=== PATIENT | female | born 1940 | race Caucasian/White ===

== ENCOUNTER 2023-01-31 18:40 | Emergency (ER) | payer MEDICARE, SELFPAY ==
[2023-01-31] VITALS (13 sets, daily range): BP systolic 136–148; BP diastolic 62–67; PULSE 45–66; RESP 10–20; TEMP 37.2; O2SAT 96–98; BMI 19.8
--- NOTE | 2023-01-31 18:57 | DI.RAD.S_ITS ---
PROCEDURE: XR CHEST 1V INDICATIONS: chest pain TECHNIQUE: One view of the chest was acquired. COMPARISON: None. FINDINGS: Surgical changes and devices: None. Lungs and pleura: Lungs are clear. No pleural effusions or pneumothorax. Mediastinum: Mediastinal contours appear normal. Heart size is normal. Bones and chest wall: No suspicious bony lesions. Overlying soft tissues appear unremarkable. IMPRESSION: No acute cardiopulmonary abnormality. Dictated by: Fercho Molina M.D. on 01/31/2023 at 19:45 Approved by: Fercho Molina M.D. on 01/31/2023 at 19:46
[2023-01-31 19:41] LABS: Add Manual Diff / Slide Review NO; Basophils Absolute Auto 100 /uL (0-100); Basophils Percent Auto 1.5 % (0-2); Eosinophils Absolute Auto 100 /uL (0-450); Eosinophils Percent Auto 2.5 % (2-4); Hematocrit 38.5 % (36-46); Lymphocytes Absolute Auto 1500 /uL (1100-4500); Lymphocytes Percent Auto 25.8 % (25-40); Mean Corpuscular HGB Conc 33.8 % (30-36); Mean Corpuscular Hemoglobin 32.2 PG (26-34); Mean Corpuscular Volume 95.2 fL (80-100); Monocytes Absolute Auto 600 /uL (0-900); Monocytes Percent Auto 10.4 % (3-14); Neutrophils Absolute Auto 3500 /uL (1500-7000); Neutrophils Percent Auto 59.8 % (50-75); Platelet Count 232 X10^3/uL (150-400); Red Blood Cell Count 4.04 X10^6/uL (4.0-5.2); Red Cell Distribution Width 13.8 % (11.6-14.8); White Blood Cell Count 5.8 X10^3/uL (4.5-11.0)
[2023-01-31 19:51] LABS: PTT Partial Thromboplastin Tim 32 SECONDS (26-36)
[2023-01-31 19:53] LABS: Alanine Aminotransferase 42 IU/L (<35); Albumin 3.8 g/dL (3.5-5.0); Albumin Globulin Ratio 1.4 (1.0-2.8); Alkaline Phosphatase 102 U/L (38-126); Aspartate Aminotransferase 41 IU/L (14-36); BUN Creatinine Ratio 32.1 (6-22); Bilirubin Total 0.4 mg/dL (0.2-1.3); Blood Urea Nitrogen 26 mg/dL (7-17); Carbon Dioxide 22 mmol/L (22-32); Chloride 103 mmol/L (98-107); Creatine Kinase 69 U/L (30-135); Estimated Glomerular Filt Rate > 60 mL/min (>60); Globulin 2.8 g/dL (1.7-4.1); Glucose 89 mg/dL (80-110); HEMOLYSIS < 15 (0-50); Lipase 76 U/L (23-300); Magnesium 2.2 mg/dL (1.6-2.3); Potassium 3.7 mmol/L (3.4-5.1); Sodium 133 mmol/L (137-145); Total Protein 6.6 g/dL (6.3-8.2)
[2023-01-31 20:05] LABS: Troponin I < 0.012 ng/mL (0.01-0.034)
[2023-01-31 20:07] LABS: COVID19 -Nasal RAPID Negative (Negative)
[2023-01-31 20:24] LABS: TSH w/ Reflex to FT4 1.59 uIU/mL (0.47-4.68)
--- NOTE | 2023-01-31 22:10 | ED_ITS ---
HPI - General Adult <Andrew George DO - Last Filed: 02/04/23 08:07> General Chief complaint: Chest Pain Stated complaint: Heart palpitations, pain in left side Time Seen by Provider: 01/31/23 19:30 Source: patient Mode of arrival: Ambulatory History of Present Illness HPI narrative: 82-year-old female nonsmoker with history of hyperlipidemia presents with her in the chief complaint some left-sided chest pain back pain that started while at rest prior to her arrival. She states that it feels somewhat similar to the chest pressure that she experiences with exertion accepted did not radiate into her neck. She states it over at least the past few weeks she is had an increasing prevalence of this type of chest pressure with exertion and denies prior episodes while at rest. She had been referred to [facility] for an outpatient stress echo which was performed earlier today and she had been driving home and was actually in the [place] when she developed moderate intensity chest pressure and felt like she may have had a few palpitations. She is been pain-free for the duration of her visit here. She did find out that the stress echo demonstrated signs of ischemia with EKG change s. She has never had heart attack, she has never had a heart catheterization. Related Data Home Medications Medication Instructions Recorded Confirmed ezetimibe 10 mg tablet (Zetia) 10 mg PO DAILY 02/01/23 02/01/23 Allergies Allergy/AdvReac Type Severity Reaction Status Date / Time oxycodone Allergy Nausea Verified 01/31/23 18:48 Review of Systems <Andrew George DO - Last Filed: 02/04/23 08:07> Review of Systems Narrative: GENERAL: Denies chills, fatigue, malaise, fever, sweats. HEENT: Denies sinus pain, ear pain, sore throat, difficulty swallowing, dizziness. RESPIRATORY: Denies dyspnea, cough, wheezing, hemoptysis, sputum. CARDIOVASCULAR: See HPI GASTROINTESTINAL: Denies nausea, vomiting, abdominal pain, diarrhea, constipation, melena. : Denies dysuria, frequency, incontinence, hematuria, urinary retention. MUSCULOSKELETAL: denies weakness, joint pain, or bony pain SKIN: Denies rash, skin lesions, or other NEUROLOGIC: Denies weakness, headache, numbness, change in speech, confusion, seizures, incoordination. PSYCHIATRIC: No concerning psychosocial issues. 12 point review of systems is negative except for those stated above Patient History <Andrew George DO - Last Filed: 02/04/23 08:07> Social History Smoking Status: Never smoker Smoking Status: Never smoker Substance Use Type: does not use Exam <DO Summer Pineda Last Filed: 02/04/23 08:07> Narrative Exam Narrative: GENERAL: [82] year old patient appears stated age. Well-developed patient, in mild distress. HEAD: Atraumatic. Normocephalic. EYES: Pupils equal round and reactive. Extraocular motions intact. No scleral icterus. No injection or drainage. ENT: Nose without bleeding, purulent drainage. Throat without erythema, tonsillar hypertrophy or exudate. Airway patent. NECK: Trachea midline. Non tender CARDIOVASCULAR: Regular rate and rhythm without murmurs, gallops, or rubs. RESPIRATORY: Clear to auscultation. Breath sounds equal bilaterally. No wheezes, rales, or rhonchi. GASTROINTESTINAL: Abdomen soft, non-tender, nondistended. EXTREMITIES: No edema or joint tenderness. BACK: Nontender without deformity or crepitance. No flank tenderness. NEURO: AOx3. SKIN: No rash or erythema of visible areas Initial Vital Signs Initial Vital Signs: Vital Signs Temperature 98.9 F 01/31/23 18:48 Pulse Rate 66 01/31/23 18:48 Respiratory Rate 18 01/31/23 18:48 Blood Pressure 148/67 H 01/31/23 18:48 Pulse Oximetry 98 01/31/23 18:48 Oxygen Delivery Method Room Air 01/31/23 18:48 <Larry Wells DO - Last Filed: 02/01/23 16:40> Initial Vital Signs Initial Vital Signs: Vital Signs Temperature 98.9 F 01/31/23 18:48 Pulse Rate 66 01/31/23 18:48 Respiratory Rate 18 01/31/23 18:48 Blood Pressure 148/67 H 01/31/23 18:48 Pulse Oximetry 98 01/31/23 18:48 Oxygen Delivery Method Room Air 01/31/23 18:48 Scores <DO Summer Pineda Last Filed: 02/04/23 08:07> HEART Score Heart Score history: Highly Suspicious Heart Score EKG: Non-Specific repolarization disturbance Heart Score Age: > or = 65 years old Heart Score risk factors: 1-2 risk factors Heart Score troponin: < or = to normal limit Heart Score Total: 6 <Larry Wells, DO - Last Filed: 02/01/23 16:40> HEART Score Heart Score Total: 6 Course <Andrew Ariel, DO - Last Filed: 02/04/23 08:07> Orders Ordered: ED Orders 01/31/23 22:35 Troponin & CK Cardiac Panel Stat 02/01/23 EKG-12 Lead Routine 02/01/23 00:34 Urine Culture Stat Urine Microscopic Stat Consultations Consultation #1: call to [facility] Time: 00:26 Consultation #2: able to speak with Dr. Ziegler. After reviewing the patient's history and physical exam, today's labs and EKGs well as today's stress test he recommends pursuing transfer to [facility] as she will likely need a heart catheterization. Given her heart rate is in the 60s, she is asymptomatic currently, has negative troponin and nonischemic EKG we discussed holding beta blockers and heparin for now. Vital Signs Vital signs: Vital Signs - 8 hr 02/01/23 09:00 02/01/23 09:00 02/01/23 09:13 Temperature Pulse Rate 62 71 Respiratory Rate 12 19 Blood Pressure 157/68 H Pulse Oximetry 100 Oxygen Delivery Method Room Air 02/01/23 09:30 02/01/23 10:00 02/01/23 10:00 Temperature Pulse Rate 73 60 Respiratory Rate 12 Blood Pressure 163/67 H Pulse Oximetry 99 100 Oxygen Delivery Method Room Air 02/01/23 10:30 02/01/23 11:00 02/01/23 11:00 Temperature Pulse Rate 62 64 Respiratory Rate 22 12 Blood Pressure 167/70 H Pulse Oximetry 100 99 Oxygen Delivery Method Room Air 02/01/23 11:25 02/01/23 11:25 02/01/23 11:30 Temperature Pulse Rate 74 68 Respiratory Rate 28 H 23 Blood Pressure 144/66 H Pulse Oximetry 99 99 Oxygen Delivery Method 02/01/23 12:00 02/01/23 12:00 02/01/23 12:30 Temperature Pulse Rate 61 63 Respiratory Rate 15 15 Blood Pressure 152/68 H Pulse Oximetry 99 99 Oxygen Delivery Method Room Air Room Air 02/01/23 13:00 02/01/23 13:00 02/01/23 13:12 Temperature Pulse Rate 66 78 Respiratory Rate 14 22 Blood Pressure 149/67 H Pulse Oximetry 100 100 Oxygen Delivery Method Room Air 02/01/23 13:12 02/01/23 13:30 02/01/23 14:00 Temperature Pulse Rate 65 63 Respiratory Rate 18 17 Blood Pressure 163/72 H Pulse Oximetry 98 98 Oxygen Delivery Method Room Air 02/01/23 14:01 02/01/23 14:01 02/01/23 14:30 Temperature Pulse Rate 68 69 Respiratory Rate 22 32 H Blood Pressure 137/63 Pulse Oximetry 99 98 Oxygen Delivery Method 02/01/23 15:00 02/01/23 15:00 02/01/23 15:51 Temperature Pulse Rate 66 77 Respiratory Rate 22 23 Blood Pressure 142/65 H Pulse Oximetry 98 99 Oxygen Delivery Method 02/01/23 16:00 02/01/23 16:00 02/01/23 16:30 Temperature 98.5 F Pulse Rate 63 74 Respiratory Rate 20 Blood Pressure 148/65 H Pulse Oximetry 97 98 Oxygen Delivery Method Room Air <Larry Wells, DO - Last Filed: 02/01/23 16:40> Orders Ordered: ED Orders 01/31/23 22:35 Troponin & CK Cardiac Panel Stat 02/01/23 EKG-12 Lead Routine 02/01/23 00:34 Urine Culture Stat Urine Microscopic Stat Vital Signs Vital signs: Vital Signs - 8 hr 02/01/23 09:00 02/01/23 09:00 02/01/23 09:13 Temperature Pulse Rate 62 71 Respiratory Rate 12 19 Blood Pressure 157/68 H Pulse Oximetry 100 Oxygen Delivery Method Room Air 02/01/23 09:30 02/01/23 10:00 02/01/23 10:00 Temperature Pulse Rate 73 60 Respiratory Rate 12 Blood Pressure 163/67 H Pulse Oximetry 99 100 Oxygen Delivery Method Room Air 02/01/23 10:30 02/01/23 11:00 02/01/23 11:00 Temperature Pulse Rate 62 64 Respiratory Rate 22 12 Blood Pressure 167/70 H Pulse Oximetry 100 99 Oxygen Delivery Method Room Air 02/01/23 11:25 02/01/23 11:25 02/01/23 11:30 Temperature Pulse Rate 74 68 Respiratory Rate 28 H 23 Blood Pressure 144/66 H Pulse Oximetry 99 99 Oxygen Delivery Method 02/01/23 12:00 02/01/23 12:00 02/01/23 12:30 Temperature Pulse Rate 61 63 Respiratory Rate 15 15 Blood Pressure 152/68 H Pulse Oximetry 99 99 Oxygen Delivery Method Room Air Room Air 02/01/23 13:00 02/01/23 13:00 02/01/23 13:12 Temperature Pulse Rate 66 78 Respiratory Rate 14 22 Blood Pressure 149/67 H Pulse Oximetry 100 100 Oxygen Delivery Method Room Air 02/01/23 13:12 02/01/23 13:30 02/01/23 14:00 Temperature Pulse Rate 65 63 Respiratory Rate 18 17 Blood Pressure 163/72 H Pulse Oximetry 98 98 Oxygen Delivery Method Room Air 02/01/23 14:01 02/01/23 14:01 02/01/23 14:30 Temperature Pulse Rate 68 69 Respiratory Rate 22 32 H Blood Pressure 137/63 Pulse Oximetry 99 98 Oxygen Delivery Method 02/01/23 15:00 02/01/23 15:00 02/01/23 15:51 Temperature Pulse Rate 66 77 Respiratory Rate 22 23 Blood Pressure 142/65 H Pulse Oximetry 98 99 Oxygen Delivery Method 02/01/23 16:00 02/01/23 16:00 02/01/23 16:30 Temperature 98.5 F Pulse Rate 63 74 Respiratory Rate 20 Blood Pressure 148/65 H Pulse Oximetry 97 98 Oxygen Delivery Method Room Air Medical Decision Making <Andrew George, - Last Filed: 02/04/23 08:07> Lab Data 01/31/23 19:21 01/31/23 19:21 Labs: Lab Results 01/31/23 01/31/23 01/31/23 Range/Units 19:21 19:21 19:21 WBC 5.8 (4.5-11.0) X10^3/uL RBC 4.04 (4.0-5.2) X10^6/uL Hgb 13.0 (12.0-16.0) g/dL Hct 38.5 (36-46) % MCV 95.2 (80-100) fL MCH 32.2 (26-34) PG MCHC 33.8 (30-36) % RDW 13.8 (11.6-14.8) % Plt Count 232 (150-400) X10^3/uL Neut % (Auto) 59.8 (50-75) % Lymph % (Auto) 25.8 (25-40) % Pratt % (Auto) 10.4 (3-14) % Eos % (Auto) 2.5 (2-4) % Baso % (Auto) 1.5 (0-2) % Neut # (Auto) 3500 (1590-4389) /uL Lymph # (Auto) 1500 (4181-4720) /uL Pratt # (Auto) 600 (0-900) /uL Eos # (Auto) 100 (0-450) /uL Baso # (Auto) 100 (0-100) /uL PT 11.0 (10.1-12.7) SECONDS INR 1.0 (0.9-1.3) APTT 32 (26-36) SECONDS Sodium 133 L (137-145) mmol/L Potassium 3.7 (3.4-5.1) mmol/L Chloride 103 (98-107) mmol/L Carbon Dioxide 22 (22-32) mmol/L BUN 26 H (7-17) mg/dL Creatinine 0.81 (0.52-1.04) mg/dL Estimated GFR > 60 (>60) mL/min BUN/Creatinine Ratio 32.1 H (6-22) Glucose 89 (80-110) mg/dL Calcium 9.0 (8.4-10.2) mg/dL Magnesium 2.2 (1.6-2.3) mg/dL Total Bilirubin 0.4 (0.2-1.3) mg/dL AST 41 H (14-36) IU/L ALT 42 H (<35) IU/L Alkaline Phosphatase 102 (38-126) U/L Total Creatine Kinase 69 (30-135) U/L CK-MB (CK-2) TNP CK-MB (CK-2) Rel Index TNP Troponin I < 0.012 (0.01-0.034) ng/mL Total Protein 6.6 (6.3-8.2) g/dL Albumin 3.8 (3.5-5.0) g/dL Globulin 2.8 (1.7-4.1) g/dL Albumin/Globulin Ratio 1.4 (1.0-2.8) Lipase 76 (23-300) U/L TSH (0.47-4.68) uIU/mL Urine RBC (0-5/HPF) Urine WBC (0-5/HPF) Uric Acid Crystals (None) Urine Bacteria (None) Ur Culture Indicated? SARS-CoV-2 (PCR) (Negative) 01/31/23 01/31/23 01/31/23 Range/Units 19:21 19:33 22:35 WBC (4.5-11.0) X10^3/uL RBC (4.0-5.2) X10^6/uL Hgb (12.0-16.0) g/dL Hct (36-46) % MCV (80-100) fL MCH (26-34) PG MCHC (30-36) % RDW (11.6-14.8) % Plt Count (150-400) X10^3/uL Neut % (Auto) (50-75) % Lymph % (Auto) (25-40) % Pratt % (Auto) (3-14) % Eos % (Auto) (2-4) % Baso % (Auto) (0-2) % Neut # (Auto) (0708-0411) /uL Lymph # (Auto) (9947-4459) /uL Pratt # (Auto) (0-900) /uL Eos # (Auto) (0-450) /uL Baso # (Auto) (0-100) /uL PT (10.1-12.7) SECONDS INR (0.9-1.3) APTT (26-36) SECONDS Sodium (137-145) mmol/L Potassium (3.4-5.1) mmol/L Chloride (98-107) mmol/L Carbon Dioxide (22-32) mmol/L BUN (7-17) mg/dL Creatinine (0.52-1.04) mg/dL Estimated GFR (>60) mL/min BUN/Creatinine Ratio (6-22) Glucose (80-110) mg/dL Calcium (8.4-10.2) mg/dL Magnesium (1.6-2.3) mg/dL Total Bilirubin (0.2-1.3) mg/dL AST (14-36) IU/L ALT (<35) IU/L Alkaline Phosphatase (38-126) U/L Total Creatine Kinase 57 (30-135) U/L CK-MB (CK-2) TNP CK-MB (CK-2) Rel Index TNP Troponin I < 0.012 (0.01-0.034) ng/mL Total Protein (6.3-8.2) g/dL Albumin (3.5-5.0) g/dL Globulin (1.7-4.1) g/dL Albumin/Globulin Ratio (1.0-2.8) Lipase (23-300) U/L TSH 1.59 (0.47-4.68) uIU/mL Urine RBC (0-5/HPF) Urine WBC (0-5/HPF) Uric Acid Crystals (None) Urine Bacteria (None) Ur Culture Indicated? SARS-CoV-2 (PCR) Negative (Negative) 02/01/23 Range/Units 00:34 WBC (4.5-11.0) X10^3/uL RBC (4.0-5.2) X10^6/uL Hgb (12.0-16.0) g/dL Hct (36-46) % MCV (80-100) fL MCH (26-34) PG MCHC (30-36) % RDW (11.6-14.8) % Plt Count (150-400) X10^3/uL Neut % (Auto) (50-75) % Lymph % (Auto) (25-40) % Pratt % (Auto) (3-14) % Eos % (Auto) (2-4) % Baso % (Auto) (0-2) % Neut # (Auto) (9199-3160) /uL Lymph # (Auto) (7948-5401) /uL Pratt # (Auto) (0-900) /uL Eos # (Auto) (0-450) /uL Baso # (Auto) (0-100) /uL PT (10.1-12.7) SECONDS INR (0.9-1.3) APTT (26-36) SECONDS Sodium (137-145) mmol/L Potassium (3.4-5.1) mmol/L Chloride (98-107) mmol/L Carbon Dioxide (22-32) mmol/L BUN (7-17) mg/dL Creatinine (0.52-1.04) mg/dL Estimated GFR (>60) mL/min BUN/Creatinine Ratio (6-22) Glucose (80-110) mg/dL Calcium (8.4-10.2) mg/dL Magnesium (1.6-2.3) mg/dL Total Bilirubin (0.2-1.3) mg/dL AST (14-36) IU/L ALT (<35) IU/L Alkaline Phosphatase (38-126) U/L Total Creatine Kinase (30-135) U/L CK-MB (CK-2) CK-MB (CK-2) Rel Index Troponin I (0.01-0.034) ng/mL Total Protein (6.3-8.2) g/dL Albumin (3.5-5.0) g/dL Globulin (1.7-4.1) g/dL Albumin/Globulin Ratio (1.0-2.8) Lipase (23-300) U/L TSH (0.47-4.68) uIU/mL Urine RBC None seen (0-5/HPF) Urine WBC 1-5/hpf (0-5/HPF) Uric Acid Crystals Few H (None) Urine Bacteria None seen (None) Ur Culture Indicated? Specimen cultured SARS-CoV-2 (PCR) (Negative) Urine Dip Bedside Urine Glucose Negative Bedside Urine Bilirubin - Negative Bedside Urine Ketone +/- 5 Urine Specific [place] 1.025 Bedside Urine Occult Blood +/- Bedside Urine pH 6 Bedside Urine Protein - Negative Bedside Urine Urobilinogen - Negative Bedside Urine Nitrite - Negative Bedside Urine Leukocytes +/- 15 Esterase Point of care testing: Urine Dip Bedside Urine Glucose Negative Bedside Urine Bilirubin - Negative Bedside Urine Ketone +/- 5 Urine Specific [place] 1.025 Bedside Urine Occult Blood +/- Bedside Urine pH 6 Bedside Urine Protein - Negative Bedside Urine Urobilinogen - Negative Bedside Urine Nitrite - Negative Bedside Urine Leukocytes +/- 15 Esterase [facility] Narrative Medical decision making narrative: 82-year-old female with hyperlipidemia has had increasing frequency and severity of stable angina and had outpatient stress test earlier today which showed evidence of ischemia and EKG changes on exertion. While on her way home she developed chest pain while at rest and presented to our facility. She is been pain-free for many hours, troponin x2 are negative and EKGs are nonocclusive. Given her clinical course I had discussion with on-call Cardiology and Yadira Chew) who recommends transfer for cardiology evaluation and treatment <Larry Wells DO - Last Filed: 02/01/23 16:40> Lab Data Labs: Lab Results 01/31/23 01/31/23 01/31/23 Range/Units 19:21 19:21 19:21 WBC 5.8 (4.5-11.0) X10^3/uL RBC 4.04 (4.0-5.2) X10^6/uL Hgb 13.0 (12.0-16.0) g/dL Hct 38.5 (36-46) % MCV 95.2 (80-100) fL MCH 32.2 (26-34) PG MCHC 33.8 (30-36) % RDW 13.8 (11.6-14.8) % Plt Count 232 (150-400) X10^3/uL Neut % (Auto) 59.8 (50-75) % Lymph % (Auto) 25.8 (25-40) % Pratt % (Auto) 10.4 (3-14) % Eos % (Auto) 2.5 (2-4) % Baso % (Auto) 1.5 (0-2) % Neut # (Auto) 3500 (7443-1626) /uL Lymph # (Auto) 1500 (4175-4342) /uL Pratt # (Auto) 600 (0-900) /uL Eos # (Auto) 100 (0-450) /uL Baso # (Auto) 100 (0-100) /uL PT 11.0 (10.1-12.7) SECONDS INR 1.0 (0.9-1.3) APTT 32 (26-36) SECONDS Sodium 133 L (137-145) mmol/L Potassium 3.7 (3.4-5.1) mmol/L Chloride 103 (98-107) mmol/L Carbon Dioxide 22 (22-32) mmol/L BUN 26 H (7-17) mg/dL Creatinine 0.81 (0.52-1.04) mg/dL Estimated GFR > 60 (>60) mL/min BUN/Creatinine Ratio 32.1 H (6-22) Glucose 89 (80-110) mg/dL Calcium 9.0 (8.4-10.2) mg/dL Magnesium 2.2 (1.6-2.3) mg/dL Total Bilirubin 0.4 (0.2-1.3) mg/dL AST 41 H (14-36) IU/L ALT 42 H (<35) IU/L Alkaline Phosphatase 102 (38-126) U/L Total Creatine Kinase 69 (30-135) U/L CK-MB (CK-2) TNP CK-MB (CK-2) Rel Index TNP Troponin I < 0.012 (0.01-0.034) ng/mL Total Protein 6.6 (6.3-8.2) g/dL Albumin 3.8 (3.5-5.0) g/dL Globulin 2.8 (1.7-4.1) g/dL Albumin/Globulin Ratio 1.4 (1.0-2.8) Lipase 76 (23-300) U/L TSH (0.47-4.68) uIU/mL Urine RBC (0-5/HPF) Urine WBC (0-5/HPF) Uric Acid Crystals (None) Urine Bacteria (None) Ur Culture Indicated? SARS-CoV-2 (PCR) (Negative) 01/31/23 01/31/23 01/31/23 Range/Units 19:21 19:33 22:35 WBC (4.5-11.0) X10^3/uL RBC (4.0-5.2) X10^6/uL Hgb (12.0-16.0) g/dL Hct (36-46) % MCV (80-100) fL MCH (26-34) PG MCHC (30-36) % RDW (11.6-14.8) % Plt Count (150-400) X10^3/uL Neut % (Auto) (50-75) % Lymph % (Auto) (25-40) % Pratt % (Auto) (3-14) % Eos % (Auto) (2-4) % Baso % (Auto) (0-2) % Neut # (Auto) (7106-3012) /uL Lymph # (Auto) (5794-6063) /uL Pratt # (Auto) (0-900) /uL Eos # (Auto) (0-450) /uL Baso # (Auto) (0-100) /uL PT (10.1-12.7) SECONDS INR (0.9-1.3) APTT (26-36) SECONDS Sodium (137-145) mmol/L Potassium (3.4-5.1) mmol/L Chloride (98-107) mmol/L Carbon Dioxide (22-32) mmol/L BUN (7-17) mg/dL Creatinine (0.52-1.04) mg/dL Estimated GFR (>60) mL/min BUN/Creatinine Ratio (6-22) Glucose (80-110) mg/dL Calcium (8.4-10.2) mg/dL Magnesium (1.6-2.3) mg/dL Total Bilirubin (0.2-1.3) mg/dL AST (14-36) IU/L ALT (<35) IU/L Alkaline Phosphatase (38-126) U/L Total Creatine Kinase 57 (30-135) U/L CK-MB (CK-2) TNP CK-MB (CK-2) Rel Index TNP Troponin I < 0.012 (0.01-0.034) ng/mL Total Protein (6.3-8.2) g/dL Albumin (3.5-5.0) g/dL Globulin (1.7-4.1) g/dL Albumin/Globulin Ratio (1.0-2.8) Lipase (23-300) U/L TSH 1.59 (0.47-4.68) uIU/mL Urine RBC (0-5/HPF) Urine WBC (0-5/HPF) Uric Acid Crystals (None) Urine Bacteria (None) Ur Culture Indicated? SARS-CoV-2 (PCR) Negative (Negative) 02/01/23 Range/Units 00:34 WBC (4.5-11.0) X10^3/uL RBC (4.0-5.2) X10^6/uL Hgb (12.0-16.0) g/dL Hct (36-46) % MCV (80-100) fL MCH (26-34) PG MCHC (30-36) % RDW (11.6-14.8) % Plt Count (150-400) X10^3/uL Neut % (Auto) (50-75) % Lymph % (Auto) (25-40) % Pratt % (Auto) (3-14) % Eos % (Auto) (2-4) % Baso % (Auto) (0-2) % Neut # (Auto) (1746-0629) /uL Lymph # (Auto) (6087-7766) /uL Pratt # (Auto) (0-900) /uL Eos # (Auto) (0-450) /uL Baso # (Auto) (0-100) /uL PT (10.1-12.7) SECONDS INR (0.9-1.3) APTT (26-36) SECONDS Sodium (137-145) mmol/L Potassium (3.4-5.1) mmol/L Chloride (98-107) mmol/L Carbon Dioxide (22-32) mmol/L BUN (7-17) mg/dL Creatinine (0.52-1.04) mg/dL Estimated GFR (>60) mL/min BUN/Creatinine Ratio (6-22) Glucose (80-110) mg/dL Calcium (8.4-10.2) mg/dL Magnesium (1.6-2.3) mg/dL Total Bilirubin (0.2-1.3) mg/dL AST (14-36) IU/L ALT (<35) IU/L Alkaline Phosphatase (38-126) U/L Total Creatine Kinase (30-135) U/L CK-MB (CK-2) CK-MB (CK-2) Rel Index Troponin I (0.01-0.034) ng/mL Total Protein (6.3-8.2) g/dL Albumin (3.5-5.0) g/dL Globulin (1.7-4.1) g/dL Albumin/Globulin Ratio (1.0-2.8) Lipase (23-300) U/L TSH (0.47-4.68) uIU/mL Urine RBC None seen (0-5/HPF) Urine WBC 1-5/hpf (0-5/HPF) Uric Acid Crystals Few H (None) Urine Bacteria None seen (None) Ur Culture Indicated? Specimen cultured SARS-CoV-2 (PCR) (Negative) Urine Dip Bedside Urine Glucose Negative Bedside Urine Bilirubin - Negative Bedside Urine Ketone +/- 5 Urine Specific [place] 1.025 Bedside Urine Occult Blood +/- Bedside Urine pH 6 Bedside Urine Protein - Negative Bedside Urine Urobilinogen - Negative Bedside Urine Nitrite - Negative Bedside Urine Leukocytes +/- 15 Esterase Point of care testing: Urine Dip Bedside Urine Glucose Negative Bedside Urine Bilirubin - Negative Bedside Urine Ketone +/- 5 Urine Specific [place] 1.025 Bedside Urine Occult Blood +/- Bedside Urine pH 6 Bedside Urine Protein - Negative Bedside Urine Urobilinogen - Negative Bedside Urine Nitrite - Negative Bedside Urine Leukocytes +/- 15 Esterase MDM Narrative Medical decision making narrative: 82-year-old female with hyperlipidemia has had increasing frequency and severity of stable angina and had outpatient stress test earlier today which showed evidence of ischemia and EKG changes on exertion. While on her way home she developed chest pain while at rest and presented to our facility. She is been pain-free for many hours, troponin x2 are negative and EKGs are nonocclusive. Given her clinical course I had discussion with on-call Cardiology and Yadira (Toney) who recommends transfer for cardiology evaluation and treatment Dr Wells: Received turned over. Review patient's history and physical exam. Patient is having unstable angina but has not had any chest pain while here at the emergency department. Dr. Burch discuss the case with cardiology who recommended transfer. I discussed the case with Dr. Amador hospitalist that [facility] who accepts the patient for transfer. Patient is stable for transport. She continues to not be on heparin as she is had 2- troponins and no chest pain however given her positive stressed test yesterday and her presenting symptoms she does require transfer. Discharge Plan Departure Patient Disposition: [facility] Clinical Impression: Angina pectoris, unstable Prescriptions: No Action ezetimibe [Zetia] 10 mg Tablet 10 mg PO DAILY Referrals: Marielle Londono MD [Primary Care Provider] -
[2023-01-31 22:58] LABS: Creatine Kinase 57 U/L (30-135)
[2023-01-31 23:11] LABS: Troponin I < 0.012 ng/mL (0.01-0.034)
[2023-02-01] VITALS (44 sets, daily range): BP systolic 125–167; BP diastolic 58–72; PULSE 46–78; RESP 9–32; TEMP 36.9–37; O2SAT 96–100
[2023-02-01 01:24] LABS: Bacteria Urine None Seen; RBC Urine None Seen (0-5/HPF); Uric Acid Crystals Urine Few; WBC Urine 1-5/HPF (0-5/HPF)
[2023-02-01 01:25] LABS: Culture Indicated Urine Specimen Cultured
--- NOTE | 2023-02-01 11:44 | PC.NURSE ---
Pt returned from bathroom, this RN placed pt back on telemetry monitoring as pt was still standing, ST depression was noted. Pt complained of slight SOB, pt layed back down in bed and normal sinus rhythm returned without depression. Dr. Wells was notified and no further action at this time.
--- NOTE | 2023-02-01 17:57 | PC.NURSE ---
Report called to receiving ARTURO Marino [phone] ext: [phone] [facility] [email or web address].
== END 2023-02-01 19:35 | disposition short-term general hospital (02) ==
PROVIDERS: Emergency Medicine; Emergency Provider Emergency Medicine; PCP Family Medicine
DX: I20.0 Unstable angina (principal); R07.9 Chest pain, unspecified; Z20.822 Contact with and (suspected) exposure to COVID-19
CPT/HCPCS: 36415; 71045; 80053; 81003; 81015; 82550; 82553; 83690; 83735; 84443; 84484; 85025; 85610; 85730; 87086; 87635; 93005; 99284; C9803

== ENCOUNTER → 2023-04-12 11:41 | Outpatient (CLI) | payer MEDICARE, SELFPAY ==
--- NOTE | 2023-04-12 | DI.US.S_ITS ---
PROCEDURE: US PERIPH VENOUS LOW EXTREM RT INDICATIONS: TRAUMATIC ECCHYMOSIS OF RIGHT LEG TECHNIQUE: Real-time imaging, as well as color and pulse Doppler interrogation, were performed of the lower extremity deep veins from the inguinal ligament to the popliteal fossa. COMPARISON: None. FINDINGS: The common femoral, femoral and popliteal veins are normally compressible, and free of intraluminal thrombus. Color and pulse Doppler demonstrate normal phasic intraluminal flow. There is normal augmentation response to distal compression maneuver. There is a focal fluid collection seen within the posterior/medial knee that measures 4.9 x 4 x 0.7 cm. Additional, dedicated ultrasound scanning is performed at the area of clinical bruising. No focal ultrasound abnormalities are seen within this region. IMPRESSION: Negative for deep venous thrombosis. 4.9 cm fluid collection seen involving the posterior medial knee. No focal ultrasound abnormality be seen at the site of clinical bruising. Dictated by: Darius Mancuso M.D. on 04/12/2023 at 11:55 Approved by: Dairus Mancuso M.D. on 04/12/2023 at 11:56
== END ==
PROVIDERS: PCP Family Medicine; Referring Provider Specialist; Visit Provider Specialist
DX: S80.11XA Contusion of right lower leg, initial encounter (principal)
CPT/HCPCS: 93971

== ENCOUNTER → 2025-06-11 11:55 | Outpatient (CLI) | payer MEDICARE, SELFPAY ==
--- NOTE | 2025-06-11 12:36 | DI.MRI.S_ITS ---
PROCEDURE: MR HIP LT WO CON INDICATIONS: PAIN TECHNIQUE: Noncontrast coronal T1 spin echo and STIR through the bony pelvis. Coronal and axial T2 fast spin echo with fat saturation, sagittal T1 spin echo, and oblique axial T2 fast spin echo with fat saturation through the hip. COMPARISON: None. FINDINGS: Moderate left hip effusion, complex. Diffuse degeneration and tearing of the acetabular labrum. Broad areas of full-thickness cartilage loss along the superior acetabulum and femoral head with subchondral marrow edema like lesions. Partial tear of the gluteus minimus tendon near the myotendinous junction. Gluteus medius and melanie tendons are unremarkable. Hamstring, proximal rectus femoris and iliopsoas tendons are intact. Iliopsoas bursa with trace fluid. No gluteal bursitis. Sciatic nerve unremarkable. Large [id number] imaging demonstrates degenerative disc disease and facet arthropathy in the lower lumbar spine, diverticulosis and right total hip arthroplasty. No fracture or marrow replacing osseous lesion. IMPRESSION: Severe left hip osteoarthritis. Partial tear left gluteus minimus tendon. Left iliopsoas bursitis. Left hip effusion, likely related to osteoarthritis. Dictated by: Robert Monreal M.D. on 06/11/2025 at 14:59 Approved by: Robert Monreal M.D. on 06/11/2025 at 15:03
== END ==
PROVIDERS: PCP Family Medicine; Referring Provider Student in an Organized Health Care Education/Training Program; Visit Provider Student in an Organized Health Care Education/Training Program
DX: M25.552 Pain in left hip (principal); G89.29 Other chronic pain; M16.12 Unilateral primary osteoarthritis, left hip; S76.012A Strain of muscle, fascia and tendon of left hip, initial encounter; M70.72 Other bursitis of hip, left hip; M25.452 Effusion, left hip
CPT/HCPCS: 73721